=== PATIENT | male | born 1965 | race African-American/Black ===

== ENCOUNTER 2018-05-18 16:12 | Emergency (ER) | payer OTHER ==
[~2018-05-18] VITALS: Ht 185.4 cm; Wt 140.6 kg
[2018-05-18] MEDS ORDERED: NORCO 5-325 TA1 EACH PO (16:34)
[2018-05-18] MEDS ORDERED: MOBIC15 MG PO (16:34)
== END 2018-05-18 17:11 | disposition home or self-care (01) ==
LOC: ER 16:12
DX: S43.491A Other sprain of right shoulder joint, initial encounter (principal); S09.90XA Unspecified injury of head, initial encounter; I10 Essential (primary) hypertension; W18.39XA Other fall on same level, initial encounter; Y92.89 Other specified places as the place of occurrence of the external cause; Y99.0 Civilian activity done for income or pay; Y99.8 Other external cause status